=== PATIENT | female | born 1995 | race Caucasian/White ===

== ENCOUNTER 2025-11-08 15:55 | Emergency (ER) | payer MEDICAID ==
[~2025-11-08] VITALS: Ht 162.6 cm; Wt 63.0 kg
[2025-11-08 16:00] VITALS: O2SAT 99
[2025-11-08] MEDS: BACITRACIN ZINC OINT UDPKT TOP ONE (17:10)
[2025-11-08] MEDS: ACETAMINOPHEN 325MG TABLET PO ONE (17:10)
[2025-11-08 19:18] VITALS: BP 130/90; PULSE 95; RESP 18; TEMP 36.6; O2SAT 99
== END 2025-11-08 19:19 | disposition home or self-care (01) ==
LOC: ER 15:55
DX: S60.512A Abrasion of left hand, initial encounter (principal); S09.8XXA Other specified injuries of head, initial encounter; Y04.0XXA Assault by unarmed brawl or fight, initial encounter; Y93.89 Activity, other specified; Y92.89 Other specified places as the place of occurrence of the external cause; Y99.8 Other external cause status
CPT/HCPCS: 99284